=== PATIENT | female | born 1975 | race Caucasian/White ===

== ENCOUNTER 2022-09-17 08:32 | Day surgery (SDC) | payer OTHER ==
[2022-09-16 11:44] LABS: COVID AG,FIA SOURCE NASAL SWAB
[2022-09-16 11:47] LABS: BASOPHILS % (AUTO) 0.3 % (0.0-2.0); HEMATOCRIT 34.9 % (36-46); HEMOGLOBIN 11.1 g/dL (12.0-16.0); LYMPHOCYTES # (AUTO) 2.3 K/uL (1.0-4.8); LYMPHOCYTES % (AUTO) 30.7 % (22.0-44.0); MEAN CORPUSCULAR HEMOGLOBIN 25.3 pg (26.0-34.0); MEAN CORPUSCULAR HGB CONC 31.7 G/dL (31.0-37.0); MEAN CORPUSCULAR VOLUME 80 fL (80-100); MONOCYTES # (AUTO) 0.4 K/uL (0.1-1.0); MONOCYTES % (AUTO) 5.7 % (2.0-9.0); NEUTROPHILS # (AUTO) 4.5 K/uL (1.8-7.7); NEUTROPHILS % (AUTO) 60.3 % (40.0-70.0); PLATELET COUNT (AUTO) 291 K/uL (150-450); RED BLOOD CELL COUNT(AUTO) 4.38 MIL/uL (4.00-5.20); RED CELL DISTRIBUTION WIDTH 14.6 % (11.5-14.5)
[2022-09-16 12:01] LABS: ANION GAP 6 mmol/L (8-16); CALCIUM, TOTAL 8.7 mg/dL (8.8-10.5); CARBON DIOXIDE 29 mmol/L (22-29); CHLORIDE 104 mmol/L (98-107); CREATININE 0.59 mg/dL (0.60-1.30); GLOMERULAR FILTR. RATE CALC > 60 mL/min (>60); GLUCOSE,RANDOM 94 mg/dL (70-110); POTASSIUM 3.9 mmol/L (3.5-5.1); SODIUM SERUM 139 mmol/L (136-145); UREA NITROGEN, BLOOD 13 mg/dL (7-18)
[2022-09-16 12:07] LABS: ALANINE AMINOTRANSFERASE 33 U/L (12-78); ALBUMIN 3.3 g/dL (3.4-5.0); ALKALINE PHOSPHATASE 168 U/L (46-116); ASPARTATE AMINOTRANSFERASE 23 U/L (15-37); BILIRUBIN,TOTAL 0.3 mg/dL (0.1-1.0); TOTAL PROTEIN, SERUM 7.9 g/dL (6.4-8.2)
[~2022-09-17] VITALS: Ht 144.8 cm; Wt 117.3 kg
[2022-09-17] MEDS ORDERED: MIDAZOLAM HCL 2 MG/2 ML VIAL IVP ONE (08:33)
[2022-09-17] MEDS ORDERED: PROPOFOL 1% 20 ML VIAL IVP ONE (08:33)
[2022-09-17] MEDS ORDERED: DEXAMETHASONE SOD PHOS 4 MG/ML VIAL IVP ONE (08:33)
[2022-09-17] MEDS ORDERED: FentaNYL CITRATE PF 100 MCG/2 ML VIAL IVP ONE (08:33)
[2022-09-17] MEDS ORDERED: ALBUTEROL SULFATE HFA 90 MCG/PUFF 8 GM INHALER IH ONE (08:33)
[2022-09-17] MEDS ORDERED: KETOROLAC TROMETHAMINE 60 MG/2 ML VIAL IM ONE (08:33)
[2022-09-17] MEDS ORDERED: ROCURONIUM BROMIDE 10 MG/ML 5 ML VIAL IVP ONE (08:33)
[2022-09-17] MEDS ORDERED: ONDANSETRON HCL 4 MG/2 ML VIAL IVP ONE (08:33)
[2022-09-17] MEDS ORDERED: LIDOCAINE/PF 2% 5 ML VIAL IM ONE (08:33)
[2022-09-17] MEDS ORDERED: METF-1211 PO (09:07)
[2022-09-17] MEDS ORDERED: ATOR20TA65 PO (09:07)
[2022-09-17] MEDS ORDERED: LEVO88TA7 PO (09:07)
[2022-09-17] MEDS ORDERED: ALBU6.7H14 IH (09:18)
[2022-09-17] MEDS ORDERED: SEMA1PEN3 SQ (09:18)
[2022-09-17] MEDS ORDERED: RINGERS SOLUTION,LACTATED 1,000 ML IV ONE ×2 (09:26→12:00)
[2022-09-17 10:06] LABS: GLUCOMETER DEV NAME(LOC) SDS.; GLUCOSE,POINT OF CARE 91 MG/DL (70-110)
[2022-09-17] MEDS ORDERED: SILVER NITRATE APPLICATOR 1 EA STICK TP ONE (10:23)
[2022-09-17] MEDS ORDERED: MetroNIDAZOLE 500 MG/NACL 100 ML IV ONE ×2 (10:52→11:05)
[2022-09-17] MEDS ORDERED: DOXYCYCLINE HYCLATE 100 MG in DEXTROSE 5%-WATER 100 ML IV ONE (11:00)
[2022-09-17] MEDS ORDERED: HYDROmorphone HCL 2 MG/ML SYRINGE IVP PRN (11:15)
[2022-09-17] MEDS ORDERED: MEPERIDINE-PF 25 MG/ML VIAL IVP PRN (11:15)
[2022-09-17] MEDS ORDERED: FentaNYL CITRATE PF 100 MCG/2 ML VIAL IVP PRN (11:15)
[2022-09-17] MEDS ORDERED: FERRIC SUBSULFATE SOLUTION 8 ML BOTTLE TP ONE (11:30)
[2022-09-17] MEDS ORDERED: OXYGEN THERAPY IH SCH (20:00)
== END 2022-09-17 14:35 | disposition home or self-care (01) ==
LOC: SURGERY 08:32
PROVIDERS: ATTEND Obstetrics & Gynecology
DX: N93.9 Abnormal uterine and vaginal bleeding, unspecified (principal); N85.00 Endometrial hyperplasia, unspecified; E11.9 Type 2 diabetes mellitus without complications; M19.90 Unspecified osteoarthritis, unspecified site; E66.01 Morbid (severe) obesity due to excess calories; J45.909 Unspecified asthma, uncomplicated; E78.00 Pure hypercholesterolemia, unspecified; Z79.899 Other long term (current) drug therapy; Z20.822 Contact with and (suspected) exposure to COVID-19; Z90.49 Acquired absence of other specified parts of digestive tract; Z98.890 Other specified postprocedural states
CPT/HCPCS: 80053; 84703; 85025; 86850; 86900; 86901; 36415; 93005 ×2; 87426; 58563; 82962; 88305; 71045; C9803; J2704; J1100; J3490 ×4; J3010; J1885; J2250; J2405; J7060; J7120; J3535; Z7610